=== PATIENT | male | born 1945 ===

== ENCOUNTER → 2024-07-11 08:00 | Outpatient (CLI) | payer OTHER ==
[~2024-07-11] VITALS: Ht 167.6 cm; Wt 72.6 kg
[~2024-07-11 08:00] MED LIST: COZAAR100 MG PO; GLIPIZIDE XL5 MG PO; LOVAZA1 GM; PROZAC10 MG; SIMVASTATIN40 MG PO; TOPROL XL50 M1 PO; TRIJARDY XR 5-1 EACH PO
[2024-07-11 08:02] VITALS: BP 180/90
[2024-07-11 08:31] LABS: PH,URINE 7.5 (5.0-8.0); URINE APPEARANCE Clear; URINE BILIRRUBIN Negative (NEGATIVE); URINE BLOOD Negative; URINE COLOR Yellow; URINE KETONE Negative (NEGATIVE); URINE LEUKOCYTE Negative; URINE NITRATE Negative; URINE PROTEIN Trace (NEGATIVE); URINE UROBILINOGEN 0.2 E.U./dl
[2024-07-11 08:33] LABS: URINE BACTERIA 30.4 uL (0.0-1933); URINE EPITHELIAL CELLS 0.6 uL (0.0-38.8); URINE GLUCOSE 500 MG/DL (NEGATIVE); URINE RBC 3.5 uL (0.0-20.8); URINE WBC 5.5 uL (0.0-23.2)
[2024-07-11 08:36] LABS: HEMATOCRIT 42.3 % (39.0-48.0); HEMOGLOBIN 13.8 g/dL (13-16.00); MEAN CELL VOLUME 87.1 fL (80.0-100.00); MEAN CORPUSCULAR HEMOGLOBIN 28.4 pg (27.00-32.0); MEAN CORPUSCULAR HGB CONC 32.5 g/dl (32.0-36.0); RED BLOOD COUNT 4.85 M/uL (4.00-6.00); RED CELL DISTRIBUTION WIDTH 13.9 % (11.5-14.5)
[2024-07-11 08:48] LABS: INR 1.02; PARTIAL THROMBOPLASTIN TIME 28.8 SECONDS (22.0-34.0); PROTHROMBIN TIME 11.1 SECONDS (9.0-11.5)
[2024-07-11 09:29] LABS: ALBUMIN 4.2 gm/dL (3.4-5.0); BILIRUBIN TOTAL 0.53 mg/dL (0.3-1.2); CALCIUM 10.3 mg/dL (8.5-10.1); CREATININE SERUM 1.69 mg/dL (0.70-1.30); GFR 39.14; GLOBULINA 4.2 G/DL (2.4-3.5); POTASSIUM 5.3 mEq/L (3.5-5.1); TOTAL PROTEIN 8.4 gm/dL (6.4-8.2)
[2024-07-11 09:57] LABS: PLATELET COUNT 128 K/uL (150-450)
[2024-07-11 10:39] LABS: RH POSITIVE
== END | disposition home or self-care (01) ==
LOC: LAB 08:00 → SURH 07-21 07:00 → EDSTATUS 07-21 07:00
PROVIDERS: ATTEND Orthopaedic Surgery Sports Medicine
DX: I10 Essential (primary) hypertension (principal); Z01.818 Encounter for other preprocedural examination; D68.9 Coagulation defect, unspecified; Z20.822 Contact with and (suspected) exposure to COVID-19; M17.12 Unilateral primary osteoarthritis, left knee